=== PATIENT | female | born 1955 | race Caucasian/White ===

== ENCOUNTER 2019-12-25 07:35 | Day surgery (SDC) | payer MEDICARE, OTHER ==
[~2019-12-25] VITALS: Ht 165.1 cm; Wt 112.9 kg
[~2019-12-25 07:35] MED LIST: ACET-907 PO; ASPI81TA85 PO; CALC1TAB9 PO; CELE1CAP4 PO; CETI10CH PO; CHIL1CHW3 PO; CYMB1CAP5 PO; ESTR62CR PV; FLON1SPR; GABA-843 PO; GABA600T4 PO; HYDR-3713 PO; IBUP200C25 PO; LIDOCAINE 1% MDV 20ML VIAL SQ PRN; LIDOCAINE 2% INJ 100 MG/5 ML SDV (FOR ANES.) As Ordered ONE; LR 1,000 ML IV ONE; MIDAZOLAM INJ 2 MG/2 ML VIAL (J2250) As Ordered ONE; OMEP40CA97 PO; RA T500C2 PO; ROCURONIUM BROMIDE 50 MG/5 ML VIAL As Ordered ONE; SIMV20TA22 PO; SYNT50TA PO; TERRAZYME PO; TIZA2CAP PO; TOPR100T PO; ULTR50TA8 PO; [UNRECOGNIZED DRUG - OTHER] PO; [UNRECOGNIZED DRUG - OTHER] PO; fentaNYL 250 MCG/5 ML INJECTION (J3010) As Ordered ONE; propofoL 200 MG/20 ML VIAL As Ordered ONE
[2019-12-25 08:00] LABS: HEMATOCRIT 40.3 % (36.0-47.0); HEMOGLOBIN 13.3 g/dl (12.0-15.5); MEAN CORPUSCULAR HEMOGLOBIN 30.2 pg (27.0-33.0); MEAN CORPUSCULAR VOLUME 91.4 fl (80.0-96.0); PLATELET COUNT, AUTOMATED 196 10^3/uL (150-450); RED BLOOD COUNT 4.41 10^6/uL (4.00-5.40); WHITE BLOOD COUNT 7.2 10^3/uL (4.0-10.0)
[2019-12-25] MEDS ORDERED: ceFAZolin SOD 2 GM in IV 1 EA IV ONE (08:00)
[2019-12-25 08:17] LABS: HCG, SERUM QUALITATIVE NEGATIVE (NEGATIVE)
[2019-12-25] MEDS ORDERED: BUPIVACAINE/EPIN 0.25% 30 ML VIAL As Ordered ONE (09:05)
[2019-12-25] MEDS ORDERED: METHYLENE BLUE 0.5% (5MG/ML) 10 ML AMP (PROVAYBLUE)(Q9968 PER 1MG) As Ordered ONE (09:05)
[2019-12-25] MEDS ORDERED: ONDANSETRON 4MG/2ML VIAL (J2405) As Ordered ONE (10:01)
[2019-12-25] MEDS ORDERED: ACETAMINOPHEN 1000MG 100ML IV BTL (OFIRMEV) (J0131 PER 10MG) As Ordered ONE (10:01)
[2019-12-25] MEDS ORDERED: KETOROLAC 60 MG/2 ML VIAL (J1885) As Ordered ONE (10:01)
[2019-12-25] MEDS ORDERED: METOCLOPRAMIDE INJ 10MG/2ML VIAL (J2765) As Ordered ONE (10:02)
[2019-12-25] MEDS ORDERED: SUGAMMADEX SODIUM 500 MG/5 ML VIAL (BRIDION) As Ordered ONE (11:05)
[2019-12-25] MEDS ORDERED: fentaNYL 100 MCG/2 ML INJECTION (J3010) IV PRN (11:30)
[2019-12-25] MEDS ORDERED: oxyCODONE 5MG TAB PO PRN (11:30)
[2019-12-25] MEDS ORDERED: LR 1,000 ML IV SCH (11:30)
[2019-12-25 13:47] VITALS: BP 129/61
--- NOTE | 2019-12-25 14:43 | POST-OPPD ---
Postoperative Procedure Note Date Of Procedure: Dec 25, 2019 PREOPERATIVE DIAGNOSIS: Rectocele POSTOPERATIVE DIAGNOSIS: Stage 3 Rectocele FINDINGS: Stage 3 Rectocele, no uterine prolapse, no cycstocele, Posterior vaginal scar consistent of prior repair. PROCEDURE: Posterior Colporrhaphy SURGEON: Julián Kothari DO TUCKING MACHINE OPERATOR: Susi Meyer MD ANESTHESIA: general SPECIMENS: none ESTIMATED BLOOD LOSS: 20cc REPLACED: 1700cc LR DRAINS: 250cc UOP COMPLICATIONS: non POSTOPERATIVE CONDITION: stable Detailed Description of procedurel: Indication for Procedure: Patient is a 64 yo postmenopausal woman with stage 3 rectocele causing discomfort desiring surgical management. Description of procedure: The patient was taken to the operating room and general anesthesia was found to be adequate. She was prepped and draped in the normal sterile fashion and placed in stirrups. Exam under anesthesia reveals stage 3 rectocele. No uterine prolapse, no anterior prolapse. Introitus 2 fingers breadth. Distal posterior vaginal mucosa with old healed scar. Marcaine 0.25% with Epinephrine injected at posterior vaginal mucosa along planned dissection plane. At this time, with a finger in the rectum, a jordin-shaped wedge of tissue was taken from the posterior distal vagina and perineum. The rectocele was then dissected free of the vaginal mucosa by the means of sharp dissection with the surgeon's finger in the rectum. The rectocele was then plicated in three layers using 2-0 Vicryl and 2-0 PDS sutures in a running fashion. Excess vaginal tissue trimmed. The vagina and perineum were then closed using 2-0 Vicryl in a running fashion. Sponge and instrument count correct x 2. Patient awoken and taken out of OR in stable condition. JULIÁN KOTHARI DO Dec 25, 2019 11:50
--- NOTE | 2019-12-25 16:30 | ECGEPIP ---
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 Clincal correlation advised Electronically Signed on 12-25-2019 16:30:20 EST by Chuck Rios
== END 2019-12-25 13:25 | disposition home or self-care (01) ==
LOC: M SDC 07:35 → M OR 07:35 → UNDOADMIN 07:35 → EDSTATUS 08:50 → UNDODISIN 13:25 → M SDC 13:25
PROVIDERS: ATTEND Obstetrics & Gynecology
DX: N81.6 Rectocele (principal); I10 Essential (primary) hypertension; E78.5 Hyperlipidemia, unspecified; E03.9 Hypothyroidism, unspecified; E11.9 Type 2 diabetes mellitus without complications; K58.8 Other irritable bowel syndrome; G47.30 Sleep apnea, unspecified; M79.7 Fibromyalgia; Z79.82 Long term (current) use of aspirin; Z79.899 Other long term (current) drug therapy
CPT/HCPCS: 36415; 57250; 84703; 85027; 93005; J0131; J0690; J1885; J2250; J2405; J2765; J3010

== ENCOUNTER → 2022-11-07 | Outpatient (CLI) | payer MEDICARE, OTHER ==
[~2022-11-07] MED LIST changes: -ASPI81TA85 PO; +ASPI81TA86 PO; +GABA-282 PO; -GABA-843 PO; -LIDOCAINE 1% MDV 20ML VIAL SQ PRN; -LIDOCAINE 2% INJ 100 MG/5 ML SDV (FOR ANES.) As Ordered ONE; -LR 1,000 ML IV ONE; -MIDAZOLAM INJ 2 MG/2 ML VIAL (J2250) As Ordered ONE; +OMEP40CA4 PO; -OMEP40CA97 PO; -ROCURONIUM BROMIDE 50 MG/5 ML VIAL As Ordered ONE; -fentaNYL 250 MCG/5 ML INJECTION (J3010) As Ordered ONE; -propofoL 200 MG/20 ML VIAL As Ordered ONE
== END ==
LOC: M WHC 13:50
PROVIDERS: ATTEND Family Medicine
DX: Z12.31 Encounter for screening mammogram for malignant neoplasm of breast (principal)

== ENCOUNTER → 2023-11-07 | Outpatient (CLI) | payer MEDICARE, OTHER | LOC: M WHC 13:10 | PROVIDERS: ATTEND Family Medicine | DX: Z76.89 Persons encountering health services in other specified circumstances (principal) ==

== ENCOUNTER → 2023-11-07 | Outpatient (CLI) | payer MEDICARE, OTHER | LOC: M PLAIMG 13:08 | PROVIDERS: ATTEND Family Medicine | DX: R93.89 Abnormal findings on diagnostic imaging of other specified body structures (principal); Z76.89 Persons encountering health services in other specified circumstances; Z78.0 Asymptomatic menopausal state ==

== ENCOUNTER → 2024-09-04 | Outpatient (CLI) | payer MEDICARE, OTHER ==
[~2024-09-04] MED LIST changes: +GABA-1172 PO; +GABA-1490 PO; -GABA-282 PO; -GABA600T4 PO
== END ==
LOC: M WHC 15:10
PROVIDERS: ATTEND Internal Medicine
DX: Z12.31 Encounter for screening mammogram for malignant neoplasm of breast (principal); R92.323 Mammographic fibroglandular density, bilateral breasts